=== PATIENT | male | born 1995 | race Two or more races ===

== ENCOUNTER 2025-01-02 01:27 | Emergency (ER) | payer MEDICAID, OTHER ==
[~2025-01-02] VITALS: Ht 182.9 cm; Wt 100.0 kg
[2025-01-02 01:29] VITALS: BP 125/89; RESP 20; O2SAT 99
[2025-01-02 01:31] VITALS: PULSE 92
[2025-01-02] MEDS ORDERED: KETOROLAC TROMETH 30 MG/ML 1ML VIAL IV ONE (01:45)
[2025-01-02] MEDS ORDERED: LORazepam 2MG/ML-1ML VIAL IV ONE (01:45)
[2025-01-02 02:03] LABS: Chloride 104 mmol/L (98-107); Sodium 138 mmol/L (136-145)
[2025-01-02 02:04] LABS: Anion Gap 12 (5-15); Calcium 9.7 mg/dL (8.7-10.4); Carbon Dioxide 22 mmol/L (20-31)
[2025-01-02 02:09] LABS: Lipase 46 U/L (12-53)
[2025-01-02 02:10] LABS: BUN/Creatinine Ratio 8.2 (10.0-20.0); Blood Urea Nitrogen < 5 mg/dL (9-23); Glucose 142 mg/dL (74-106)
[2025-01-02 02:17] LABS: Basophils # (auto) 0.1 10 ^3/uL (0-0.2); Basophils % (auto) 0.7 % (0.0-2.0); Eosinophils # (auto) 0.1 10 ^3/uL (0-0.8); Hematocrit 40.5 % (41.0-53.0); Hemoglobin 12.8 g/dL (13.5-17.5); Lymphocytes # (auto) 3.4 10 ^3/uL (0.4-5.4); Lymphocytes % (auto) 47.1 % (10.0-50.0); Mean Corpuscular Hemoglobin 23.1 pg (28.0-32.0); Mean Corpuscular Hgb Conc. 31.6 g/dL (32.0-36.0); Monocytes # (auto) 0.4 10 ^3/uL (0-1.3); Neutrophils # (auto) 3.3 10 ^3/uL (1.6-8.6); Neutrophils % (auto) 46.2 % (37.0-80.0); Platelet Count (auto) 234 10^3/uL (140-450); Red Blood Cells 5.55 10^6/uL (4.5-5.90); White Blood Cell 7.2 10^3/uL (4.4-10.8)
[2025-01-02 02:18] LABS: Red Cell Distribution Width 23.6 % (11.8-14.3)
[2025-01-02 02:19] LABS: Blood Alcohol 368.6 mg/dL (<10)
--- NOTE | 2025-01-02 05:21 | ECG ---
[facility] Test Date: 2025-01-02 Test Time: 01:31:40 Pat Name: MARY CHING Department: ED Room: Gender: M [employer] Work[employer] Helper: EULA : 1995 Requested By: MAKAYLA EWING Order Number: [id number] Reading MD: Measurements Intervals Madeline Rate: 92 P: 44 OR: 150 QRS: 83 QRSD: 87 T: 36 QT: 348 QTc: 431 Interpretive Statements Sinus rhythm ST elev, probable normal early repol pattern Please click the below link to view image of tracing.
== END 2025-01-02 04:10 | disposition left against medical advice (07) ==
LOC: EDBD 01:27 → ER 01:27
DX: R07.89 Other chest pain (principal); Z53.21 Procedure and treatment not carried out due to patient leaving prior to being seen by health care provider
CPT/HCPCS: 36415; 80048; 80320; 83690; 83880; 84484; 85025; 93005

== ENCOUNTER 2025-01-03 03:11 | Inpatient (IN) | payer MEDICAID ==
[~2025-01-03] VITALS: Ht 182.9 cm; Wt 102.7 kg
--- NOTE | 2025-01-03 04:07 | ED.PDOC ---
History of Present Illness HPI Comments 29-year-old male presents with complaints of nausea, vomiting, black stools, and nosebleeding secondary to heavy alcohol intake. Patient states he has a history of liver and lung CA and was undergoing radiation treatment until about 4 months ago. He states he stopped treatment because of the way it was affecting his children. Patient states he had sudden onset of nausea and vomiting 3 hours prior to arrival. He denies any abdominal pain. Reports nose bleeding and and his stools being black in appearance for long time. Patient states he has heavily consumed alcohol for the past week (a 36 pack per day) due to being depressed. He denies any suicidal ideation or homicidal ideation. Chief Complaint: Mental Health Time Seen by MD: 03:40 Primary Care Provider: Unk Reviewed Notes: Nurses Notes, Medications, Allergies Allergies: Coded Allergies: NO KNOWN ALLERGIES (Unverified , 01/02/25) Information Source: Patient Mode of Arrival: Ambulatory Severity: Moderate Timing: Hours Duration: Since onset Prehospital treatment: None Past Medical History PAST MEDICAL HISTORY: Cancer (Lung and liver cancer), Liver (Liver cancer) Surgical History: Denies all surgeries Family History Family History: Unknown Social History Smoker: Other (Nicotine vape) Alcohol: Heavy Drugs: Denies Drug Use Lives In: Home All Other Systems: Reviewed and Negative (Comprehensive review of systems is negative unless otherwise stated in HPI) Physical Exam General Appearance: Mild Distress HEENT: Other (Mild dark red epistaxis from left nare. Moist mucous membranes. Pupils symmetric.) Neck: Full Range of Motion, Normal Inspection Respiratory: Lungs Clear, No Accessory Muscle Use, No Respiratory Distress, Normal Breath Sounds Cardiovascular: No Edema, No JVD, Regular Rate/Rhythm Breast Exam: Deferred Gastrointestinal: Non Tender, Soft Genitalia: Deferred Pelvic: Deferred Rectal: Deferred Extremities: Normal inspection, Normal range of motion, Non-tender, No pedal edema Neurologic: Alert (Oriented x4), No Motor Deficits, Normal Affect, Other (Depressed mood. Ambulatory without difficulty. No gross focal deficit.) Cerebellar Function: NOT DONE Reflexes: NOT DONE Skin: Dry, Normal Color, Warm Lymphatic: NOT DONE Was a procedure done? Was a procedure done?: No Differential Dx Considerations may include: Alcohol related gastritis, alcohol intoxication, electrolyte imbalance, dehydration/hypovolemia, coagulopathy, among others X-Ray, Labs, Meds, VS Vital Signs Date Time Temp Pulse Resp B/P (MAP) Pulse Ox O2 Delivery O2 Flow Rate FiO2 01/03/25 03:24 98.6 96 18 141/101 (114) 96 Lab Test 01/03/25 03:50 Range/Units White Blood Count 8.5 4.4-10.8 10^3/uL Red Blood Count 5.78 4.5-5.90 10^6/uL Hemoglobin 13.4 L 13.5-17.5 g/dL Hematocrit 41.6 41.0-53.0 % Mean Corpuscular Volume 72.0 L 80.0-100.0 fL Mean Corpuscular Hemoglobin 23.3 L 28.0-32.0 pg Mean Corpuscular Hemoglobin Concent 32.3 32.0-36.0 g/dL Red Cell Distribution Width 23.6 H 11.8-14.3 % Platelet Count 275 140-450 10^3/uL Mean Platelet Volume 8.6 6.9-10.8 fL Neutrophils (%) (Auto) 53.5 37.0-80.0 % Lymphocytes (%) (Auto) 40.0 10.0-50.0 % Monocytes (%) (Auto) 5.0 0.0-12.0 % Eosinophils (%) (Auto) 0.5 0.0-7.0 % Basophils (%) (Auto) 1.0 0.0-2.0 % Neutrophils # (Auto) 4.5 1.6-8.6 10 ^3/uL Lymphocytes # (Auto) 3.4 0.4-5.4 10 ^3/uL Monocytes # (Auto) 0.4 0-1.3 10 ^3/uL Eosinophils # (Auto) 0 0-0.8 10 ^3/uL Basophils # (Auto) 0.1 0-0.2 10 ^3/uL Nucleated Red Blood Cells 0.2 % Prothrombin Time 11.6 9.3-11.8 sec Prothrombin Time INR 1.11 0.9-1.15 Activated Partial Thromboplast Time 31.6 24.5-34.5 SEC Sodium Level 137 136-145 mmol/L Potassium Level 4.0 3.5-5.1 mmol/L Chloride Level 101 98-107 mmol/L Carbon Dioxide Level 23 20-31 mmol/L Anion Gap 13 5-15 Blood Urea Nitrogen < 5 L 9-23 mg/dL Creatinine 0.71 0.700-1.30 mg/dL Glomerular Filtration Rate Calc 128 >90 mL/min BUN/Creatinine Ratio 7.0 L 10.0-20.0 Serum Glucose 143 H 74-106 mg/dL Lactic Acid Level 1.2 0.4-2.0 mmol/L Calcium Level 9.8 8.7-10.4 mg/dL Total Bilirubin 0.7 0.2-1.0 mg/dL Aspartate Amino Transferase (AST) 67 H 13-40 U/L Alanine Aminotransferase (ALT) 52 H 7-40 U/L Alkaline Phosphatase 159 H 46-116 U/L Total Protein 8.9 H 5.7-8.2 g/dL Albumin 5.2 H 3.2-4.8 g/dL Lipase 50 12-53 U/L Plasma/Serum Blood Alcohol 384.5 H <10 mg/dL PROCEDURE(s): CXRP - CHEST PORTABLE REASON: lung ca ORDER NUMBER(s): [id number], ACCESSION NUMBER(s): [id number] CHEST RADIOGRAPH Indication: lung ca Technique: Single frontal view of the chest was obtained Comparison: None FINDINGS: Lines and Tubes: None Lungs: No focal consolidation. Pleura: No effusion. No pneumothorax. Cardiomediastinal contours: Unremarkable Bones: No acute osseous abnormality. IMPRESSION: 1. No acute cardiopulmonary disease. EDURE(s): ABPL - CT AB PEL WO CON-NO ORAL OR IV REASON: black stool, n/v, h/o lung and liver CA ORDER NUMBER(s): [id number], ACCESSION NUMBER(s): [id number] Exam: CT CT AB PEL WO CON-NO ORAL OR IV History: black stool, n/v, h/o lung and liver CA Comparison Study: None available at time of dictation. Technique: Multidetector spiral CT of the abdomen and pelvis was performed from lung bases to pubic symphysis. Imaging was performed without intravenous contrast. Coronal and sagittal multiplanar reformats were obtained from the axial data set by the technologist. Radiation Dose : 1. Abdomen/Pelvis: CTDIvol 14.7 mGy, DLP 863.49 mGy*cm. Findings: Evaluation of vasculature and solid organs is limited due to lack of intravenous contrast use. Lung Bases: Lung bases are clear. Visualized portions of the heart and pericardium are unremarkable. Liver: The liver is normal in size. No focal lesions. Diffusely hypoattenuating liver parenchyma consistent with hepatic steatosis. Gallbladder and Biliary Tree: The gallbladder is unremarkable. No intrahepatic or extrahepatic biliary ductal dilatation. Spleen: Unremarkable Pancreas: The pancreas is grossly unremarkable. Adrenal Glands: Unremarkable Kidneys: Kidneys are unremarkable without calculi or hydronephrosis. GI tract: The stomach is grossly normal in appearance. No evidence of small bowel wall thickening or abnormal dilatation to suggest bowel obstruction. Short segment mural thickening in the sigmoid colon without significant fat stranding. The appendix is visualized and is normal. Peritoneum/mesentery/retroperitoneum. No evidence of free intraperitoneal air. No ascites. Lymph nodes: Increased number of retroperitoneal and mesenteric lymph nodes which are not pathologically enlarged. Abdominal Wall: Unremarkable. Vasculature: The visualized abdominal aorta is normal in size and caliber. E valuation of abdominal and pelvic vessels is limited due to lack of intravenous contrast. Urinary Bladder: Grossly unremarkable for degree of distention. Pelvic Organs: Unremarkable Musculoskeletal: No aggressive focal bony lesions, acute fractures or d islocation. IMPRESSION: 1. Short segment wall thickening of the sigmoid colon which may reflect colitis in the appropriate clinical setting. Colonoscopy may be obtained when feasible to exclude any underlying lesions. 2. Increased number of retroperitoneal and mesenteric lymph nodes which are not pathologically enlarged. These may reflect reactive lymph nodes. In a patient with a reported cancer history, metastatic adenopathy would be difficult to exclude. No other mass is seen on this study which is limited without intravenous contrast. 3. Hepatic steatosis. X-Ray, Labs, Meds, VS Comment 29-year-old male with a history of lung and liver cancer brought in by self complaining of nausea and vomiting after heavily drinking alcohol. Patient also reports black stools and epistaxis Vitals remarkable for BP 141/101 Exam remarkable for depressed mood. No SI/HI. Rhythm strip independently interpreted by me: Sinus rhythm, rate 96, no ectopy. Chest x-ray unremarkable CT abdomen and pelvis: IMPRESSION: 1. Short segment wall thickening of the sigmoid colon which may reflect colitis in the appropriate clinical setting. Colonoscopy may be obtained when feasible to exclude any underlying lesions. 2. Increased number of retroperitoneal and mesenteric lymph nodes which are not pathologically enlarged. These may reflect reactive lymph nodes. In a patient with a reported cancer history, metastatic adenopathy would be difficult to exclude. No other mass is seen on this study which is limited without intravenous contrast. 3. Hepatic steatosis. CBC remarkable for hemoglobin 13.4, metabolic panel were remarkable for AST 67, ALT 52, alkaline phos 159, lipase and lactate normal, alcohol level 384.5 Patient treated with the following in the ED: 1 L 0.9 normal saline IV bolus, Zofran 4 mg IV, Ativan 1 mg IV, Protonix 40 mg IV, Zosyn 4.5 g IV On re-evaluation, patient is resting comfortably with stable vitals. He is hemodynamically stable. Plan is to admit the patient for IV antibiotics and GI/Heme-Onc evaluation. Time of 1ST Reevaluation: 04:10 Reevaluation 1ST: Unchanged Patient Education/Counseling: Diagnosis, Treatment Family Education/Counseling: No Family Present Departure 1 Departure Time of Disposition: 15:36 Impression: Primary Impression: Colitis Additional Impression: Alcohol intoxication Qualified Codes: F10.929 - Alcohol use, unspecified with intoxication, unspecified Disposition: ADMITTED INPATIENT Admit to: Med Surg Condition: Guarded Critical Care Note Critical Care Time?: No Stability Stability form required: No Heart Score Heart Score: Heart Score Response (Comments) Value History N/A 0 EKG N/A 0 Age N/A 0 Risk Factors N/A 0 Troponin N/A 0 Total 0 I personally scribed for MAKAYLA ROSARIO MD ([email or web address]) on 01/03/25 at 04:07. Electronically submitted by Andrew Gonzalez ([email or web address]). I personally scribed for MAKAYLA ROSARIO MD ([email or web address]) on 01/03/25 at 04:44. Electronically submitted by Andrew Gonzalez [email or web address]). MAKAYLA ROSARIO MD Jan 03, 2025 04:07
[2025-01-03 04:25] LABS: Basophils # (auto) 0.1 10 ^3/uL (0-0.2); Eosinophils # (auto) 0 10 ^3/uL (0-0.8); Eosinophils % (auto) 0.5 % (0.0-7.0); Hematocrit 41.6 % (41.0-53.0); Hemoglobin 13.4 g/dL (13.5-17.5); INR 1.11 (0.9-1.15); Lymphocytes # (auto) 3.4 10 ^3/uL (0.4-5.4); Mean Corpuscular Hemoglobin 23.3 pg (28.0-32.0); Mean Corpuscular Hgb Conc. 32.3 g/dL (32.0-36.0); Monocytes # (auto) 0.4 10 ^3/uL (0-1.3); Neutrophils # (auto) 4.5 10 ^3/uL (1.6-8.6); Neutrophils % (auto) 53.5 % (37.0-80.0); Nucleated Red Blood Cells % 0.2 %; Partial Thromboplastin Time 31.6 SEC (24.5-34.5); Platelet Count (auto) 275 10^3/uL (140-450); Prothrombin Time 11.6 sec (9.3-11.8); Red Blood Cells 5.78 10^6/uL (4.5-5.90); White Blood Cell 8.5 10^3/uL (4.4-10.8)
[2025-01-03 04:28] LABS: Red Cell Distribution Width 23.6 % (11.8-14.3)
[2025-01-03 04:35] LABS: Anion Gap 13 (5-15); Calcium 9.8 mg/dL (8.7-10.4); Carbon Dioxide 23 mmol/L (20-31); Chloride 101 mmol/L (98-107); Lipase 50 U/L (12-53); Sodium 137 mmol/L (136-145)
[2025-01-03 04:36] LABS: Bilirubin, Total 0.7 mg/dL (0.2-1.0)
[2025-01-03 04:39] LABS: Alanine Aminotransferase 52 U/L (7-40); Albumin 5.2 g/dL (3.2-4.8); Alkaline Phosphatase 159 U/L (46-116); Aspartate Aminotransferase 67 U/L (13-40); Blood Urea Nitrogen < 5 mg/dL (9-23); Glucose 143 mg/dL (74-106); Total Protein 8.9 g/dL (5.7-8.2)
--- NOTE | 2025-01-03 04:39 | DVH ---
CHEST RADIOGRAPH Indication: lung ca Technique: Single frontal view of the chest was obtained Comparison: None FINDINGS: Lines and Tubes: None Lungs: No focal consolidation. Pleura: No effusion. No pneumothorax. Cardiomediastinal contours: Unremarkable Bones: No acute osseous abnormality. IMPRESSION: 1. No acute cardiopulmonary disease.
[2025-01-03 04:45] LABS: Blood Alcohol 384.5 mg/dL (<10)
--- NOTE | 2025-01-03 04:45 | DVH ---
Exam: CT CT AB PEL WO CON-NO ORAL OR IV History: black stool, n/v, h/o lung and liver CA Comparison Study: None available at time of dictation. Technique: Multidetector spiral CT of the abdomen and pelvis was performed from lung bases to pubic s ymphysis. Imaging was performed without intravenous contrast. Coronal and sagittal multiplanar reform ats were obtained from the axial data set by the technologist. Radiation Dose : 1. Abdomen/Pelvis: CTDIvol 14.7 mGy, DLP 863.49 mGy*cm. Findings: Evaluation of vasculature and solid organs is limited due to lack of intravenous contrast use. Lung Bases: Lung bases are clear. Visualized portions of the heart and pericardium are unremarkable. Liver: The liver is normal in size. No focal lesions. Diffusely hypoattenuating liver parenchyma con sistent with hepatic steatosis. Gallbladder and Biliary Tree: The gallbladder is unremarkable. No intrahepatic or extrahepatic biliar y ductal dilatation. Spleen: Unremarkable Pancreas: The pancreas is grossly unremarkable. Adrenal Glands: Unremarkable Kidneys: Kidneys are unremarkable without calculi or hydronephrosis. GI tract: The stomach is grossly normal in appearance. No evidence of small bowel wall thickening or abnormal dilatation to suggest bowel obstruction. Short segment mural thickening in the sigmoid colon without significant fat stranding. The appendix is visualized and is normal. Peritoneum/mesentery/retroperitoneum. No evidence of free intraperitoneal air. No ascites. Lymph nodes: Increased number of retroperitoneal and mesenteric lymph nodes which are not pathologica lly enlarged. Abdominal Wall: Unremarkable. Vasculature: The visualized abdominal aorta is normal in size and caliber. Evaluation of abdominal a nd pelvic vessels is limited due to lack of intravenous contrast. Urinary Bladder: Grossly unremarkable for degree of distention. Pelvic Organs: Unremarkable Musculoskeletal: No aggressive focal bony lesions, acute fractures or dislocation. IMPRESSION: 1. Short segment wall thickening of the sigmoid colon which may reflect colitis in the appropriate cl inical setting. Colonoscopy may be obtained when feasible to exclude any underlying lesions. 2. Increased number of retroperitoneal and mesenteric lymph nodes which are not pathologically enlarg ed. These may reflect reactive lymph nodes. In a patient with a reported cancer history, metastatic adenopathy would be difficult to exclude. No other mass is seen on this study which is limited withou t intravenous contrast. 3. Hepatic steatosis.
[2025-01-03 05:43] VITALS: PULSE 99; RESP 22; O2SAT 97
[2025-01-03] MEDS: PIPERACILLIN-TAZO 4.5GM 100 ML IV ONE (06:00)
[2025-01-03] MEDS: SODIUM CHLORIDE 0.9% 2,000 ML IV ONE (06:00)
[2025-01-03] MEDS: LORazepam 2MG/ML-1ML VIAL IV ONE ×2 (06:07→08:39)
[2025-01-03] MEDS: ONDANSETRON HCL 4 MG/2 ML VIAL IV ONE (06:10)
[2025-01-03] MEDS: PANTOPRAZOLE 40 MG/10 ML VIAL INJ IV ONE (06:10)
[2025-01-03] MEDS: HYDROcodone-ACET 5/325MG TAB PO ONE (06:31)
[2025-01-03 07:47] LABS: Urine Bacteria None Seen /hpf (None Seen)
[2025-01-03 07:56] LABS: Urine Blood Negative /uL (Negative); Urine Clarity Clear (Clear); Urine Color Colorless (Yellow); Urine Protein, UAD Negative (Negative); Urine Specific Gravity 1.004 (1.001-1.035); Urine Squamous Epithelial Cell None Seen /hpf (<5); Urine Urobilinogen Normal (Negative); Urine WBC < 1 /HPF (0-3)
[2025-01-03] MEDS ORDERED: HYDROcodone-ACET 5/325MG TAB PO PRN (08:00)
[2025-01-03] MEDS ORDERED: MORPHINE SULFATE INJ 2 MG/ml SYRG IV PRN (08:00)
[2025-01-03] MEDS ORDERED: NITROGLYCERIN 0.4 MG SL TAB SL PRN (08:00)
[2025-01-03] MEDS ORDERED: ACETAMINOPHEN 325 MG TAB PO PRN (08:00)
[2025-01-03] MEDS: LORazepam 2MG/ML-1ML VIAL IV SCH (08:00)
[2025-01-03] MEDS ORDERED: LORazepam 2MG/ML-1ML VIAL IV PRN (08:00)
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
[2025-01-03 08:19] LABS: Benzodiazephine Screen, Urine Neg (NEGATIVE)
[2025-01-03 08:21] LABS: Amphetamine Screen, Urine Neg (NEGATIVE); Barbiturate Scree,Urine Neg (NEGATIVE); Cannabinoid Screen, Urine Neg (NEGATIVE); Opiate Scree,Urine Neg (NEGATIVE); Phencyclidine Screen, Urine Neg (NEGATIVE)
[2025-01-03 08:32] LABS: Cocaine Screen, Urine Neg (NEGATIVE)
[2025-01-03] MEDS: SODIUM CHLORIDE 0.9% 1,000 ML IV ONE (09:34)
[2025-01-03] MEDS: chlordiazePOXIDE HCL 25 MG CAP PO SCH (09:52)
[2025-01-03 10:30] VITALS: PULSE 85; RESP 19; O2SAT 94
[2025-01-03] MEDS: MULTIPLE VITAMIN TAB PO SCH (12:28)
[2025-01-03] MEDS: FOLIC ACID 1 MG TAB PO SCH (12:28)
[2025-01-03] MEDS: PANTOPRAZOLE 40 MG/10 ML VIAL INJ IV SCH (12:29)
[2025-01-03] MEDS: THIAMINE HCL 100 MG TAB PO SCH (12:29)
[2025-01-03] MEDS: ONDANSETRON HCL 4 MG/2 ML VIAL IV PRN (19:46)
[2025-01-04 07:02] LABS: Basophils # (auto) 0 10 ^3/uL (0-0.2); Basophils % (auto) 1.2 % (0.0-2.0); Eosinophils # (auto) 0 10 ^3/uL (0-0.8); Eosinophils % (auto) 1.2 % (0.0-7.0); Hematocrit 34.7 % (41.0-53.0); Hemoglobin 11.1 g/dL (13.5-17.5); Lymphocytes # (auto) 1.1 10 ^3/uL (0.4-5.4); Lymphocytes % (auto) 31.3 % (10.0-50.0); Mean Corpuscular Hemoglobin 23.1 pg (28.0-32.0); Mean Corpuscular Hgb Conc. 31.9 g/dL (32.0-36.0); Mean Corpuscular Volume 72.5 fL (80.0-100.0); Monocytes # (auto) 0.3 10 ^3/uL (0-1.3); Monocytes % (auto) 8.5 % (0.0-12.0); Neutrophils % (auto) 57.8 % (37.0-80.0); Nucleated Red Blood Cells % 0.2 %; Platelet Count (auto) 139 10^3/uL (140-450); Red Blood Cells 4.78 10^6/uL (4.5-5.90); Red Cell Distribution Width 22.8 % (11.8-14.3); White Blood Cell 3.5 10^3/uL (4.4-10.8)
[2025-01-04 07:30] VITALS: PULSE 95; RESP 21; TEMP 98.4; O2SAT 96
[2025-01-04 07:45] LABS: Alanine Aminotransferase 38 U/L (7-40); Anion Gap 9 (5-15); BUN/Creatinine Ratio 10.3 (10.0-20.0); Calcium 9.7 mg/dL (8.7-10.4); Carbon Dioxide 24 mmol/L (20-31); Chloride 104 mmol/L (98-107); Glucose 101 mg/dL (74-106); Potassium 3.8 mmol/L (3.5-5.1); Sodium 137 mmol/L (136-145)
[2025-01-04 07:46] LABS: Albumin 4.4 g/dL (3.2-4.8)
[2025-01-04 07:47] LABS: Total Protein 7.5 g/dL (5.7-8.2)
[2025-01-04 07:48] LABS: Alkaline Phosphatase 146 U/L (46-116); Aspartate Aminotransferase 50 U/L (13-40); Bilirubin, Total 1.3 mg/dL (0.2-1.0); Blood Urea Nitrogen 8 mg/dL (9-23)
[2025-01-04] MEDS: chlordiazePOXIDE HCL 25 MG CAP PO SCH (10:07)
--- NOTE | 2025-01-04 14:42 | DVHPN2 ---
Reviewed: Care Plan, H&P, Labs, Medications, Previous Orders Changes from previous H/P or p: No Changes General: Per HPI Eyes: No Pain, No Vision change, No Conjunctivae inflammation, No Eyelid inflammation, No Other, No Redness ENT: No Ear pain, No Ear discharge, No Nose pain, No Nose discharge, No Nose congestion, No Mouth pain, No Mouth swelling, No Throat pain, No Throat swelling; Other (Epistaxis, ) Cardiovascular: No Chest Pain, No Palpitations, No Orthopnea, No Paroxysmal Noc. Dyspnea, No Edema, No Lt Headedness, No Other Respiratory: No Cough, No Dry, No Shortness of breath, No SOB with excertion, No Wheezing, No Hemoptysis, No Pleuritic Pain, No Sputum, No Other Gastrointestinal: Nausea, Vomiting, Abdominal Pain; No Diarrhea, No Constipation; Melena; No Hematochezia, No Other Genitourinary: No Dysuria, No Frequency, No Incontinence, No Hematuria, No Retention, No Other Musculoskeletal: No other, No neck pain, No shoulder pain, No arm pain, No back pain, No hand pain, No leg pain, No foot pain Skin: No Rash, No Lesions, No Jaundice, No Bruising, No Other Objective Vitals Vital Signs Date Time Temp Pulse Resp B/P (MAP) Pulse Ox O2 Delivery O2 Flow Rate FiO2 01/04/25 14:00 94 19 117/70 (86) 97 01/04/25 07:30 98.4 98.4 01/04/25 07:30 Room Air* 0 21 Medications Current Medications Medications Dose Ordered Sig/Jose De Jesus Route Start Time Stop Time Status Last Admin Dose Admin Acetaminophen/ Hydrocodone Bitart 1 tab Q4HP PRN PO 01/03/25 08:00 Ondansetron HCl 4 mg Q4HP PRN IV 01/03/25 08:00 01/04/25 11:41 4 MG Acetaminophen 650 mg Q6HP PRN PO 01/03/25 08:00 Nitroglycerin 0.4 mg Q5MINP PRN SL 01/03/25 08:00 Morphine Sulfate 2 mg Q30M PRN IV 01/03/25 08:00 Chlordiazepoxide HCl 50 mg Q12HR PO 01/04/25 10:00 01/04/25 22:01 01/04/25 10:07 50 MG Chlordiazepoxide HCl 25 mg Q12HR PO 01/05/25 10:00 01/05/25 22:01 Chlordiazepoxide HCl 25 mg QAM PO 01/06/25 07:00 01/06/25 07:01 Thiamine HCl 100 mg DAILY PO 01/03/25 10:00 01/04/25 10:06 100 MG Folic Acid 1 mg DAILY PO 01/03/25 10:00 01/04/25 10:14 1 MG Multivitamins 1 tab DAILY PO 01/03/25 10:00 01/04/25 10:06 1 TAB Lorazepam 1 mg Q4H IV 01/03/25 08:00 01/04/25 11:55 1 MG Lorazepam 1 mg Q2HPRN PRN IV 01/03/25 08:00 Pantoprazole Sodium 40 mg BID IV 01/03/25 10:00 01/04/25 10:06 40 MG Laboratory Results Laboratory Tests 01/04/25 06:30 Chemistry Test 01/04/25 06:30 Albumin 4.4 g/dL (3.2-4.8) Calcium Level 9.7 mg/dL (8.7-10.4) Total Protein 7.5 g/dL (5.7-8.2) LFT Test 01/04/25 06:30 Alanine Aminotransferase (ALT) 38 U/L (7-40) Alkaline Phosphatase 146 U/L (46-116) H Aspartate Amino Transferase (AST) 50 U/L (13-40) H Total Bilirubin 1.3 mg/dL (0.2-1.0) H Urinalysis Test 01/03/25 07:32 Urine Color Colorless (Yellow) Urine Clarity Clear (Clear) Urine pH 5.0 (5.0-9.0) Urine Specific [place] 1.004 (1.001-1.035) Urine Protein Negative (Negative) Urine Ketones Negative (Negative) Urine Blood Negative /uL (Negative) Urine Nitrite Negative (Negative) Urine Bilirubin Negative (Negative) Urine Urobilinogen Normal mg/dL (Negative) Urine Leukocyte Esterase Negative /uL (Negative) Urine RBC <1 /hpf (0 - 3) Urine Microscopic WBC < 1 /HPF (0-3) Urine Squamous Epithelial Cells None seen /hpf (<5) Urine Bacteria None seen /hpf (None Seen) Urine Glucose Normal mg/dL (Normal) Microbiology Microbiology Date/Time Source Procedure Growth Status 01/03/25 03:50 Blood Blood Culture - Preliminary NO GROWTH AFTER 24 HOURS OF INCUBATION. Resulted Assessment/Plan Assessment/Plan Julius Payan is a 29-year-old male with no significant past medical history, who was brought in by his brother due to alcohol intoxication. Patient states that his mother about 4 months ago from liver and lung cancer and since then he has been drinking heavily. States he is drinking about 36/beers a day. He started having nausea, vomiting, and dark stools for about 1 week. Patient also began having nose bleeds yesterday. Alcohol intoxication, Colitis, GI bleed, Epistaxis, Hepatic Steatosis, Transaminitis, ETOH dependance, Depression, Plan: Admit to DEEPALI, CINDY protocol, Librium tapering dose, IV hydration, Stool for occult blood, Consider GI consult if symptoms do not improve, Protonix IV BID, Manage/Monitor electrolytes closely, Plan discussed with: Patient Date of Service: Jan 04, 2025 Billing Provider: SUZIE REID JIMMY T DO Jan 04, 2025 14:42
[2025-01-04 16:30] VITALS: BP 134/80; PULSE 97; RESP 14; O2SAT 96
[2025-01-05] MEDS ORDERED: chlordiazePOXIDE HCL 25 MG CAP PO SCH (10:00)
[2025-01-06] MEDS ORDERED: chlordiazePOXIDE HCL 25 MG CAP PO SCH (07:00)
== END 2025-01-04 17:07 | disposition left against medical advice (07) | DRG 816 ==
LOC: ER 03:11 → OVERFLOW 07:46
PROVIDERS: ADMIT Internal Medicine; ATTEND Internal Medicine
DX: T51.91XA Toxic effect of unspecified alcohol, accidental (unintentional), initial encounter (principal); A04.9 Bacterial intestinal infection, unspecified; K92.2 Gastrointestinal hemorrhage, unspecified; K76.0 Fatty (change of) liver, not elsewhere classified; R04.0 Epistaxis; F32.A Depression, unspecified; F10.129 Alcohol abuse with intoxication, unspecified; F17.200 Nicotine dependence, unspecified, uncomplicated; Y90.8 Blood alcohol level of 240 mg/100 ml or more; Z80.1 Family history of malignant neoplasm of trachea, bronchus and lung; Z85.05 Personal history of malignant neoplasm of liver; Z85.118 Personal history of other malignant neoplasm of bronchus and lung
CPT/HCPCS: 36415; 71045; 74176; 80053; 80307; 80320; 81001; 83605; 83690; 83735; 85025; 85610; 85730; 87040; 96365; 96375; G0378; J2405; J2470; J2543